=== PATIENT | male | born 1980 | race Caucasian/White ===

== ENCOUNTER 2022-01-15 08:51 | Emergency (ER) | payer SELFPAY ==
[~2022-01-15] VITALS: Ht 175.3 cm; Wt 109.8 kg
[2022-01-15 08:55] VITALS: BP 135/96
--- NOTE | 2022-01-15 09:15 | NUR ---
Patient ambulated to bed 02 with steady/even gait.
--- NOTE | 2022-01-15 09:35 | NUR ---
41/M C/O ABDOMINAL PAIN X2 DAYS, STATES ON THURSDAY HE WAS TOLD AT [facility] HE HAD GALLSTONES, REPORTS BEING DC HOME WITH RX OF TRAMADOL, BUT STATES NO RELIEF. REPORTS N/V. PATIENT STATES RLQ 8/10, STABBING/CONSTANT, NON-RADIATING PAIN WITH NAUSEA AND 2 EPISODE SOF VOMITING. PT DENIES DIARRHEA, CONSTIPATION, FEVER, CHILLS, COLD-LIKE SYMPTOMS, CHEST PAIN, HEADACHE. BED LOCKED IN LOWEST POSITION, SIDE RAILS X 1. PMH: DM, HTN NKA
[2022-01-15] MEDS: NACL 0.9% 1,000 ML IV ONE (10:18)
[2022-01-15] MEDS: KETOROLAC 30 MG/ML VIAL IVP ONE (10:22)
[2022-01-15] MEDS: ONDANSETRON 4 MG/2 ML VIAL IVP ONE (10:24)
[2022-01-15 11:23] LABS: ALBUMIN 4.1 g/dL (3.4-5.0); CARBON DIOXIDE 33.4 mmol/L (21-32); CREATININE 1.3 mg/dL (0.6-1.3); POTASSIUM 4.4 mmol/L (3.5-5.1); TOTAL BILIRUBIN 0.7 mg/dL (0.0-1.0)
[2022-01-15 11:45] LABS: RED CELL DISTRIBUTION WIDTH 14.7 % (11.6-13.7)
[2022-01-15 11:51] LABS: BASOPHILS % (AUTO) 0.3 % (0.0-2.0); EOSINOPHILS # (AUTO) 0.1 K/uL (0-0.4); EOSINOPHILS % (AUTO) 0.9 % (0.0-4.0); HEMOGLOBIN 19.4 g/dL (12.0-18.0); LYMPHOCYTES # (AUTO) 1.1 K/uL (2.0-11.5); MEAN CORPUSCULAR HEMOGLOBIN 29 pg (27-31); MEAN CORPUSCULAR HGB CONC 32 g/dL (33-37); MEAN CORPUSCULAR VOLUME 90.2 fL (80-94); MONOCYTES # (AUTO) 0.7 K/uL (0.8-1.0); MONOCYTES % (AUTO) 8.1 % (1.7-9.3); NEUTROPHILS # (AUTO) 7.2 K/uL (1.8-7.7); NEUTROPHILS % (AUTO) 78.7 % (42.2-75.2); PLATELET COUNT (AUTO) 231 K/uL (140-450); RED BLOOD CELL COUNT(AUTO) 6.65 MIL/uL (4.20-6.10); WHITE BLOOD COUNT (AUTO) 9.1 K/uL (4.8-10.8)
[2022-01-15] MEDS ORDERED: ACET-8386 PO (12:40)
[2022-01-15] MEDS ORDERED: NAPR-1546 PO (12:40)
[2022-01-15 13:20] VITALS: BP 129/81
--- NOTE | 2022-01-15 13:20 | NUR ---
Patient discharged with v/s stable. Written and verbal after care instructions about biliary colic given and explained. Patient alert, oriented and verbalized understanding of instructions. Ambulatory with steady gait. All questions addressed prior to discharge. ID band removed. Patient advised to follow up with PMD. Rx of Naproxen and Dexter 5/325mg given. Patient educated on indication of medication including possible reaction and side effects. Opportunity to ask questions provided and answered.
== END 2022-01-15 13:20 | disposition home or self-care (01) ==
LOC: MED 08:51
DX: K80.20 Calculus of gallbladder without cholecystitis without obstruction (principal); E11.9 Type 2 diabetes mellitus without complications; I10 Essential (primary) hypertension; Z79.4 Long term (current) use of insulin; Z79.899 Other long term (current) drug therapy
CPT/HCPCS: 36415; 76705; 80053; 81002; 83690; 85025; 96361; 96374; 96375; 99284; J1885; J2405; J7030; Q0092